=== PATIENT | male | born 1980 | race Caucasian/White ===

== ENCOUNTER 2025-06-26 05:38 | Day surgery (SDC) | payer BC ==
[2025-06-24 14:08] LABS: MEAN PLATELET VOLUME 8.8 FL (7.4-10.4); PRE OP HEMATOCRIT 40.9 % (42.0-52.0); PRE OP HEMOGLOBIN 14.0 g/dL (14.0-17.9); PRE OP PLATELET COUNT 199 X10'3 (140-440); PRE OP WHITE BLOOD COUNT 5.9 10'3 (4.8-10.8); RED CELL DISTRIBUTION WIDTH 13.9 % (11.5-14.5)
--- NOTE | 2025-06-24 14:15 | ELECTROCARDIOGRAPH REPORT ---
[facility] Test Date: 2025-06-24 Test Time: 14:10:22 Pat Name: JULIA GERARD Department: [facility]-PRE-OP Patient ID: [facility]-[id number] Room: Gender: M Visual Merchandising Manager: : 1980 Requested By: ARETHA STEPHENS Order Number: [id number] Reading MD: Dr. GEOFFREY Phoenix Measurements Intervals [place] Rate: 50 P: 52 NE: 205 QRS: 61 QRSD: 94 T: 69 QT: 450 QTc: 411 Interpretive Statements Sinus bradycardia Borderline prolonged NE interval Baseline wander in lead(s) V5,V6 Electronically Signed On 06-24-2025 17:27:[address] GEOFFREY [place] Please click the below link to view image of tracing.
[2025-06-24 14:27] LABS: CREATININE 1.00 MG/DL (0.60-1.10); PRE OP ALT 32 U/L (30-65); PRE OP ANION GAP 7 (8-16); PRE OP AST 35 U/L (10-37); PRE OP BILIRUB, TOTAL 0.4 MG/DL (0.0-1.0); PRE OP GLUCOSE 100 MG/DL (70-104); PRE OP POTASSIUM 4.0 MMOL/L (3.4-5.1); PRE OP SODIUM 139 MMOL/L (135-145); TOTAL CARBON DIOXIDE 27.8 MMOL/L (24-32); eGFR 82 ML/MIN
[2025-06-26] VITALS (11 sets, daily range): BP systolic 115–132; BP diastolic 71–77; PULSE 49–90; RESP 11–16; TEMP 98; O2SAT 97–100
[~2025-06-26] VITALS: Ht 193 cm; Wt 93.4 kg
[~2025-06-26 05:38] MED LIST: NO HOME MEDS
[2025-06-26] MEDS: ringers solution, lacted 1,000 ML IV SCH ×2 (06:21→09:15)
[2025-06-26] MEDS: INDOCYANINE GREEN 25 MG/10 ML VIAL IV ONE (06:22)
[2025-06-26] MEDS: ceFAZolin 2gm/dext,iso 50mL 50 ML IV ONE (06:24)
[2025-06-26] MEDS ORDERED: LIDOcaine 1% 30ml preserv. free vial ONE (06:45)
[2025-06-26] MEDS ORDERED: BUPIVAcaine/PF 2.5mg/ml (0.25%) 10ml vial ONE (06:45)
[2025-06-26] MEDS ORDERED: fentaNYL/PF 50MCG/1 ML 2ML syringe ONE (07:26)
[2025-06-26] MEDS ORDERED: rocuronium 10mg/ml inj IV ONE (07:27)
[2025-06-26] MEDS ORDERED: midazolam 1 mg/ML 2ml injection ONE (07:27)
[2025-06-26] MEDS ORDERED: propofol inj 20 ML IV ONE (07:27)
--- NOTE | 2025-06-26 07:33 | HISTORY AND PHYSICAL ---
History & Physical Providers to CC CC: XANDER STEPHENS MD ~ History of Present Illness Reason for Admit\Complaint: Symptomatic cholelithiasis History of Present Illness Interval history and physical exam Patient here with diagnosis of symptomatic cholelithiasis Seen in the office greater than 30 days ago but denies any change in his past medical history Please see previous history and physical exam for all pertinent details He is scheduled for robotic assisted, laparoscopic possible open cholecystectomy Allergies: Coded Allergies: No Known Allergies (Unverified , 06/25/25) Home Medications Home Medications Active Reported No Home Medications (Home Med List) Each ROS ROS Reviewed and negative Exam General: 44-year-old male in no acute distress Chest: Lungs clear to auscultation bilaterally Cardiovascular: Regular rate and rhythm without murmurs Abdomen: Soft and nondistended Diagnostic Data Last Recorded Lab Results: 06/24/25 1403 06/24/25 1403 Problems: (1) Symptomatic cholelithiasis Status: Chronic Assessment & Plan: The risks, benefits, and alternatives to a robotic assisted, laparoscopic possible open cholecystectomy were discussed with the patient and his family. Risks include, but are not limited to, bleeding, infection, injury to intra-abdominal structures, injury to the biliary tree, postoperative bile leak and retained common bile duct stone. Patient verbalized understanding and wishes to proceed with surgery. We will do so today as scheduled Permanent Comment: For any questions or concerns please call Dr. Stephens at [phone] Last Edited By: Xander Stephens MD on Jun 26, 2025 07:32 XANDER STEPHENS MD Jun 26, 2025 07:33
[2025-06-26] MEDS ORDERED: dexamethasone sod phosphate 4mg/ml inj. ONE (07:36)
[2025-06-26] MEDS ORDERED: HYDROmorphone/PF 0.2 MG/ML SYRINGE IV PRN (07:50)
[2025-06-26] MEDS ORDERED: hydrALAZINE 20mg/ml inj. IV PRN (07:50)
[2025-06-26] MEDS ORDERED: ondansetron/PF 4mg/2ml inj IV PRN (07:50)
[2025-06-26] MEDS ORDERED: morphine 4 MG/ML inj SYRINge IV PRN (07:50)
[2025-06-26] MEDS ORDERED: labetalol 20mg/4ml (5mg/ml) syringe IV PRN (07:50)
[2025-06-26] MEDS: BUPIVAcaine/PF 2.5mg/ml (0.25%) 10ml vial IJ ONE (08:02)
[2025-06-26] MEDS ORDERED: ondansetron/PF 4mg/2ml inj ONE (08:31)
[2025-06-26] MEDS ORDERED: glycopyrrolate 0.2mg/ml inj ONE (08:36)
[2025-06-26] MEDS: ketorolac trometh 30MG/ML vial 30 MG/ML VIAL IV ONE (09:09)
--- NOTE | 2025-06-26 09:18 | OPERATIVE REPORT ---
Operative Report Providers to CC CC: XANDER STEPHENS MD ~ Date of Procedure: Jun 26, 2025 Pre-Operative Diagnosis: Symptomatic cholelithiasis Post-Operative Diagnosis SAME as PRE-Op Procedure Performed Robotic assisted, laparoscopic cholecystectomy Surgeon: Xander Stephens MD FACS Wall And Floor Tiler None Anesthesiologist: Amol Lee Type of Anesthesia: General Findings: Clearly visualized cystic duct with a critical view of safety obtained Wound class II Complications None Prosthetics\Implants used: None Estimated Blood Loss: Minimal Specimen Removed: Gallbladder Description of Procedure: Patient was brought to the operating room and identified by the nursing staff a nd the attending physician. Patient was placed supine and general anesthesia was induced. A supraumbilical, midline incision was made, long enough to accommodate a 12 mm Pillai port. Pillai technique was used to gain entry into the abdomen. There was a small subcentimeter umbilical hernia. Preperitoneal fat that was herniated was excised and discarded and the fascial edges were freshened. Stay sutures were placed in the Pillai port anchored to the fascia. Abdomen was insufflated without incident. Laparoscope was inserted and the abdomen surveyed. Secondary, 8.5 mm robotic trochars were placed in the left upper quadrant and right lateral abdomen. Robotic arm was docked to the patient. Robotic instruments were guided intra- abdominally under laparoscopic visualization. Gallbladder was clearly visualized. Gallbladder did fill with contrast using firefly. Fundus of the gallbladder was grasped and retracted over the dome of the liver. Infundibulum was retracted towards the right lower quadrant. Firefly technology was used to obtain a fluorescent cholangiogram and visualize the pertinent anatomy. Cystic duct was clearly visualized. Peritoneum overlying the triangle was incised with hook electrocautery. This allowed for circumferential dissection of the cystic duct and artery. Critical view of safety was obtained. Duct and artery were then clipped with hemo-lock clips and both structures divided. Gallbladder was retracted laterally and dissected out of the gallbladder fossa. Gallbladder was set aside and fluorescent cholangiogram of the gallbladder fossa was used to confirm no evidence of bile leak. Gallbladder was placed in a laparoscopic retrieval bag. Secondary trochars were removed and the abdomen allowed to deflate. Pillai port was removed with the specimen in its retrieval bag. Fascia at the umbilical port site was closed with a combination of 0 Ethibond and 0 Vicryl sutures, to reinforce closure of the small hernia defect. Skin was closed with 4-0 Monocryl sutures in a subcuticular fashion About 40 cc of local anesthetic was used during the case. Sterile dressings were applied. Patient was awakened and taken to the postanesthesia care unit in stable condition. Counts repoted as correct: Yes XANDER STEPHENS MD Jun 26, 2025 09:18
[2025-06-26] MEDS: HYDROmorphone/PF 0.2 MG/ML SYRINGE IV PRN (09:29)
[2025-06-26] MEDS: oxyCODONE/APAP 5-325mg tablet PO PRN (10:05)
== END 2025-06-26 10:36 | disposition home or self-care (01) ==
LOC: PAS 05:38
PROVIDERS: ATTEND Surgery
DX: K80.10 Calculus of gallbladder with chronic cholecystitis without obstruction (principal); F41.9 Anxiety disorder, unspecified
CPT/HCPCS: 36415; 47563; 80053; 82948; 85025; 93005; J1100; J1171; J1885; J2003; J2250; J2270; J2405; J2704; J2710; J3010; J3490; J7030; J7120; S2900; Z7506; Z7508; Z7512; A4215; A4618; A7000